=== PATIENT | female | born 1995 | race African-American/Black ===

== ENCOUNTER 2017-06-01 19:41 | Emergency (ER) | payer OTHER ==
[~2017-06-01] VITALS: Ht 177.8 cm; Wt 77.1 kg
[~2017-06-01 19:41] MED LIST: BACTRIM DS TABL1 TA1 PO; DICLEGIS DR 101 EACH PO; DOC-Q-LACE100 MG PO; FLAGYL PO; FLONASE NASAL SPRAY; IRON1 TA1 PO; MICROGESTIN FE1 EACH; NO MEDICATIONS; PRENATAL VITAMI1 TA5 PO; PRENATAL1 TA1 PO; PYRIDIUM PO; SUDAFED PO; ULTRAM PO; VOLTAREN DR PO; ZOVIRAX200 MG PO; ZYRTEC PO
[2017-06-01] MEDS ORDERED: PRENATALS (20:35)
== END 2017-06-01 23:33 | disposition left against medical advice (07) ==
LOC: CED 19:41
DX: Z53.21 Procedure and treatment not carried out due to patient leaving prior to being seen by health care provider (principal)

== ENCOUNTER 2017-06-01 20:23 | Emergency (ER) | payer OTHER ==
[~2017-06-01] VITALS: Ht 177.8 cm; Wt 79.4 kg
[2017-06-01] MEDS ORDERED: PRENATALS (20:35)
== END 2017-06-01 22:31 | disposition home or self-care (01) ==
LOC: SED 20:23
DX: L23.2 Allergic contact dermatitis due to cosmetics (principal); T49.8X5A Adverse effect of other topical agents, initial encounter
CPT/HCPCS: 99283